=== PATIENT | male | born 1965 | race American Indian/Alaskan Native ===

== ENCOUNTER 2020-09-16 07:20 | Day surgery (SDC) | payer BC, OTHER ==
[~2020-09-16] VITALS: Ht 185.4 cm; Wt 121.9 kg
[~2020-09-16 07:20] MED LIST: METFORMIN HCL500 MG PO
--- NOTE | 2020-09-16 07:57 | NUR ---
BLOOD GLUCOSE 120.
--- NOTE | 2020-09-16 08:26 | NUR ---
09/16/20 0826 Rekha Pereyra 0824-PT TO PACU IN LL POSITION. EYES CLOSED. RESPONDS TO TACTILE AND VERBAL STIMULI. REMAINS ASLEEP. BREATHING EASY AND UNLABORED. SPO2 >95% ON 2 L O2 VIA NC.
--- NOTE | 2020-09-16 09:34 | NUR ---
0991 PT ARRIVED TO ROOM 9 ON 2L NC, PT WAKES EASILY TO VERBAL STIMULI. PT REPORTS BEING DROWSY. PT DENIES PAIN AND REPORTS PASSING SMALL AMOUNT OF GAS. IV FLUIDS INFUSING, AWARE OF MORE FLUIDS BEING GIVEN. PLAN OF CARE DISCUSSED. VSS. PULSE OX REMAINS IN PLACE. PT ENCOURAGED TO REST.
--- NOTE | 2020-09-16 10:48 | NUR ---
PT RESTING IN THE STRETCHER. PT REPORTS HE IS FEELING BETTER. REPORTS NO PAIN OR NAUSEA. OXYGEN SAT MID 90'S ON 2L VIA NC. OXYGEN TITRATED OFF.
--- NOTE | 2020-09-16 11:00 | NUR ---
MORE AWAKE SAT 93% ON ROOM AIR. TAKING WATER. READY TO GO HOME.
--- NOTE | 2020-09-16 11:10 | NUR ---
PT UP TO BATHROOM AND RETURNED TO ROOM. PT GETTING DRESSED AND FAMILY CALLED FOR RIDE HOME. LADI HUNT GAVE DC INSTRUCTIONS AND PAPERWORK GIVEN. ANGELS.
--- NOTE | 2020-09-17 06:33 | OR ---
[facility] [address], [place] [address] Signed DATE OF OPERATION: 09/16/2020 SURGEON: Tanner Hines MD PREOPERATIVE DIAGNOSIS: Brother with colonic polyps in his 50s. POSTOPERATIVE DIAGNOSES: 1. 4 mm polyp at 25 cm (sigmoid). 2. Minimal to moderate sigmoid diverticulosis. 3. Minimal internal hemorrhoids. PROCEDURE: Colonoscopy with hot biopsy. ESTIMATED BLOOD LOSS: None. INDICATIONS: ANASTASIIA is a 54-year-old diabetic gentleman, asked to see me for his initial colonoscopy. He reminded me I had removed a polyp for his brother in his mid 50s. His brother is morbidly obese and unfortunately at age 61. ANASTASIIA has no lower GI complaints. This would be his first colonoscopy. I gave him a booklet in the office on colonoscopy and we reviewed the nature of the test. There is risk including, but not limited to gas bloating, crampy abdominal pain, bleeding, perforation requiring surgery, and missed diagnosis. He also understands the need for IV conscious sedation. He had expressed understanding and wished to proceed. PROCEDURE NOTE: ANASTASIIA was taken into our endoscopy suite and placed in the left lateral decubitus position. He was given 6 mg of Versed and 100 mcg of fentanyl to cover the case. A digital rectal exam was performed and this was unremarkable. Prostate not particularly concerning. The adult colonoscope was introduced and advanced all around into the cecum under direct visualization of camera without difficulty. His prep was quite excellent. We could easily see the appendiceal orifice and the ileocecal valve. The scope was slowly withdrawn. We found diverticula in the sigmoid colon. They were moderate in size, moderate in number, and scattered about. He had a very tiny polyp at 25 cm in his distal sigmoid colon. It was easily removed with the help of hot biopsy forceps. The rectum itself was unremarkable. Upon retroflexion of scope, he has very minimal internal hemorrhoid tissue. After this, the gas was suctioned out and colonoscope Electronically Signed By: TANNER HINES MD 09/17/20 0633 PATIENT NAME: KAROLINA COOLEY OPERATIVE REPORT DATE OF : 61 REPORT #: [id number] PHYSICIAN: TANNER HINES MD PCP: FEDERICO RATLIFF MD REPORT IS CONFIDENTIAL AND NOT TO BE RELEASED WITHOUT AUTHORIZATION [facility] [address], [place] [address] Signed removed. TC tolerated procedure quite well. RECOMMENDATIONS: TC will follow up with me in 7 to 14 days to review his results. He will be on the 5-year rotation because of a family history. Tanner Hines MD ALB/MODL /[id number] cc: Tanner Hines MD [facility] Copies: TANNER HINES MD ~ Electronically Signed By: TANNER HINES MD 09/17/20 0633 PATIENT NAME: KAROLINA COOLEY OPERATIVE REPORT DATE OF : 61 REPORT #: [id number] PHYSICIAN: TANNER HINES MD PCP: FEDERICO RATLIFF MD REPORT IS CONFIDENTIAL AND NOT TO BE RELEASED WITHOUT AUTHORIZATION
--- NOTE | 2020-09-20 20:25 | PATH ---
[facility] [address] [place], [place] [address] Signed SPECIMEN(S): A SIGMOID POLYP 25 CM SPECIMEN SOURCE: A. SIGMOID POLYP 25 CM CLINICAL HISTORY: Screening; family history of polyps. Diagnosis: Diverticulosis; colon polyp. MICROSCOPIC DESCRIPTION: Histologic sections of all submitted blocks are examined by light microscopy. These findings, together with the gross examination, support the pathologic diagnosis. FINAL PATHOLOGIC DIAGNOSIS: Colon, sigmoid, polyp at 25 cm, polypectomy: - Colonic mucosa with no histopathologic abnormality. - Negative for dysplasia or malignancy. COMMENT: Multiple additional deeper levels were examined. NAL:cml:C2NR GROSS DESCRIPTION: The specimen, labeled "Yared Kvng, #1," and designated on the requisition "sigmoid polypectomy 25 cm," is received in formalin and consists of one cerrato soft tissue fragment that measures 0.2 cm in greatest dimension. The specimen is entirely submitted in cassette (A1). FB (under the direct supervision of a pathologist) The Gross Description was prepared using a voice recognition system. The report was reviewed for accuracy; however, sound-alike word errors, addition and/or deletions may occur. If there is any question about this report, please contact Client Services. PERFORMING LABORATORY: The technical component was performed by [facility], [address] [place] [id number] (Director Nicu: Aurora Fernández MD; CLIA# [id number]). [facility], [address] [address] (CLIA# [id number]). Diagnostician: Lisa Saravia MD Pathologist PATIENT NAME: KVNG COOLEY PATHOLOGY DATE OF : 61 REPORT #: [id number] PHYSICIAN: CYNDIE PATHOLOGY PCP: FEDERICO RATLIFF MD REPORT IS CONFIDENTIAL AND NOT TO BE RELEASED WITHOUT AUTHORIZATION [address] [address] Signed Electronically Signed 09/20/2020 Copies: ~ PATIENT NAME: KVNG COOLEY PATHOLOGY DATE OF : 61 REPORT #: [id number] PHYSICIAN: INCYTE PATHOLOGY PCP: FEDERICO RATLIFF MD REPORT IS CONFIDENTIAL AND NOT TO BE RELEASED WITHOUT AUTHORIZATION
== END 2020-09-16 11:30 | disposition home or self-care (01) ==
LOC: DS 07:20 → OPS 07:20 → DS 09:00 → OPS 11:30
PROVIDERS: ATTEND Colon & Rectal Surgery
PROC: 0DBN8ZX Excision of Sigmoid Colon, Via Natural or Artificial Opening Endoscopic, Diagnostic (ICD-10-PCS; principal; 2020-09-16 08:15)
DX: Z12.11 Encounter for screening for malignant neoplasm of colon (principal); K63.5 Polyp of colon; K57.30 Diverticulosis of large intestine without perforation or abscess without bleeding; K64.8 Other hemorrhoids; E11.9 Type 2 diabetes mellitus without complications; E78.5 Hyperlipidemia, unspecified; E55.9 Vitamin D deficiency, unspecified
CPT/HCPCS: G0500; J2250; J3010; J7121